=== PATIENT | male | born 1995 | race Caucasian/White ===

== ENCOUNTER 2019-03-23 10:27 | Outpatient (CLI) | payer OTHER, SELFPAY ==
[2019-03-23 10:37] VITALS: BMI 24.7
== END 2019-03-23 10:47 | disposition home or self-care (01) ==
LOC: UTC.OUT 10:29
PROVIDERS: Visit Provider Nurse Practitioner Family
DX: Z23 Encounter for immunization (principal)
CPT/HCPCS: 90714

== ENCOUNTER 2021-07-01 17:15 | Emergency (ER) | payer SELFPAY ==
[2021-07-01 17:16] VITALS: BP 151/95; PULSE 135; RESP 21; TEMP 36.8; O2SAT 97; BMI 24.3
[2021-07-01 17:33] VITALS: BP 150/96; PULSE 115; RESP 16; O2SAT 99
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
--- NOTE | 2021-07-01 19:05 | PC.NURSE ---
Dr. Alvarado at bedside to fix head lac.
[2021-07-01 20:09] VITALS: BP 149/78; PULSE 110; RESP 16; TEMP 36.8; O2SAT 99
[2021-07-01 20:10] VITALS: BP 130/74; PULSE 80; RESP 18; TEMP 36.6; O2SAT 96
== END 2021-07-01 20:11 ==
PROVIDERS: Emergency Provider Emergency Medicine; PCP Emergency Medicine
DX: S01.01XA Laceration without foreign body of scalp, initial encounter (principal); Y04.0XXA Assault by unarmed brawl or fight, initial encounter; S01.81XA Laceration without foreign body of other part of head, initial encounter; V89.2XXA Person injured in unspecified motor-vehicle accident, traffic, initial encounter
CPT/HCPCS: 12002; 12011; 70450; 70486; 71046; 72125; 72170; 99283